=== PATIENT | female | born 1970 | race Caucasian/White ===

== ENCOUNTER 2018-10-15 17:57 | Emergency (ER) | payer BC ==
[2018-10-15] MEDS ORDERED: Acetaminophen/Codeine 300-30 MG Tab PO ONE (18:51)
[2018-10-15] MEDS ORDERED: Diphtheria,Pertussis(Acell),Tetanus Vaccine 0.5 ML SDV IM ONE (18:53)
--- NOTE | 2018-10-15 18:55 | EDM.PDOC ---
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 Pt fell onto her right hand when her right ring finger hyper extended. Pt reduced her right ring finger immediately but noticed swelling of her right ring finger with FROM of that finger. Pt noticed some discomfort at her right wrist as well, has FROM however. Pt noticed an abrasion at her right lower leg. No active bleed. TD not UTD. No other acute medical issues. BP 104/ 67 Pulse 55 Pulse ox 100% on RA RR 16. Temp 36.8 Onset Date: 10/15/18 Onset Time: 06:00 Duration: Hour(s): Location: Reports: Upper Extremity, Right, Lower Extremity, Right Quality: Reports: Dull Severity: Mild Improves with: Reports: Rest Worsens with: Reports: Movement Context: Reports: Trauma Associated Symptoms: Reports: No Other Symptoms fnger Pain Score (Numeric/FACES): 8 - Related Data Allergies Allergy/AdvReac Type Severity Reaction Status Date / Time No Known Allergies Allergy Verified 10/15/18 18:07 Home Meds: Home Meds Acarbose 25 mg PO DAILY 10/15/18 [History] Acetaminophen with Codeine [Tylenol with Codeine #3 Tablet] 1 each PO Q8HR PRN # 6 tablet 10/15/18 [Rx] Calcium Carbonate/Vitamin D3 [Calcium 600 + Vit D Tablet] 1 tab PO DAILY [History] Cholecalciferol (Vitamin D3) [Vitamin D] 5,000 unit PO DAILY 10/15/18 [History] DULoxetine HCl [Duloxetine HCl] 60 mg PO DAILY 10/15/18 [History] Ferrous Gluconate 324 mg PO DAILY 10/15/18 [History] Levothyroxine 150 mcg PO DAILY 10/15/18 [History] Multivitamin [Multivitamins] 1 each PO BID 10/15/18 [History] buPROPion HCl [Wellbutrin Xl] 300 mg PO DAILY 10/15/18 [History] Social & Family History - Tobacco Use Smoking Status *Q: Never Smoker - Recreational Drug Use Recreational Drug Use: No Review of Systems - Review of Systems Review Of Systems: See Below Constitutional: Reports: No Symptoms Eyes: Reports: No Symptoms Ears: Reports: No Symptoms Nose: Reports: No Symptoms Mouth/Throat: Reports: No Symptoms Respiratory: Reports: No Symptoms Cardiovascular: Reports: No Symptoms GI/Abdominal: Reports: No Symptoms Genitourinary: Reports: No Symptoms Musculoskeletal: Reports: Hand Pain Skin: Reports: Wound (right lower leg) Neurological: Reports: No Symptoms Psychiatric: Reports: No Symptoms ED EXAM, GENERAL - Physical Exam Exam: See Below Exam Limited By: No Limitations General Appearance: Alert, WD/WN, Mild Distress Eye Exam: Bilateral Eye: Normal Inspection Ears: Normal External Exam, Normal Canal Ear Exam: Bilateral Ear: Auricle Normal Nose: Normal Inspection Throat/Mouth: Normal Inspection, Normal Lips, Normal Voice, No Airway Compromise Head: Atraumatic, Normocephalic Neck: Normal Inspection, Supple, Non-Tender, Full Range of Motion Respiratory/Chest: No Respiratory Distress, Lungs Clear, Normal Breath Sounds, Chest Non-Tender Cardiovascular: Normal Peripheral Pulses, Regular Rate, Rhythm, No Edema, No Murmur, No Rub Peripheral Pulses: 2+: Carotid (R) GI/Abdominal: Normal Bowel Sounds, Soft, Non-Tender, No Organomegaly, No Mass, Pelvis Stable (Female) Exam: Deferred Rectal (Female) Exam: Deferred Back Exam: Normal Inspection, Full Range of Motion Extremities: Normal Range of Motion, Non-Tender, No Pedal Edema, Normal Capillary Refill, Other (abrasioj R lower leg) Neurological: Alert, Oriented, CN II-XII Intact, Normal Cognition, Normal Gait Psychiatric: Normal Affect, Normal Mood Skin Exam: Warm, Dry, Intact, Normal Color, No Rash Lymphatic: No Adenopathy Course - Vital Signs Text/Narrative:: 47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 Pt fell onto her right hand when her right ring finger hyper extended. Pt reduced her right ring finger immediately but noticed swelling of her right ring finger with FROM of that finger. Pt noticed some discomfort at her right wrist as well, has FROM however. Pt noticed an abrasion at her right lower leg. No active bleed. TD not UTD. No other acute medical issues. BP 104/ 67 Pulse 55 Pulse ox 100% on RA RR 16. Temp 36.8 PE: WNWD W F with right ring finger discomfort and an abrasion Right lower leg , S/P Gastric byp[ass surgery Imaging: Right hand, fingers and wrist: NAD, official report is pending Impression: Right ring finger sprain, Abrasion right lower leg Tx: Wound care, TD, Tylenol with codeine Reexam: Improved Plan: D/C with instructions Last Recorded V/S: Last Vital Signs Temp 36.7 C 10/15/18 18:00 Pulse 55 L 10/15/18 18:00 Resp 16 10/15/18 18:00 BP 104/67 10/15/18 18:00 Pulse Ox 100 10/15/18 18:00 - Orders/Labs/Meds Orders: Active Orders 24 hr Category Date Time Status Vaccines to be Administered [RC] PER UNIT ROUTINE Care 10/15/18 18:53 Active Wrist Comp Min 3V Rt [CR] Stat Exams 10/15/18 18:23 Taken Meds: Medications Discontinued Medications Generic Name Dose Route Start Last Admin Trade Name Arie PRN Reason Stop Dose Admin Acetaminophen/Codeine Phosphate 1 tab 10/15/18 18:51 10/15/18 19:08 Tylenol With Codeine No.3 300mg/30mg PO 10/15/18 18:52 1 tab ONETIME ONE Administration Diphtheria/Tetanus/Acell Pertussis 0.5 ml 10/15/18 18:53 10/15/18 19:07 Adacel IM 10/15/18 18:54 0.5 ml .ONCE ONE Administration Departure - Departure Time of Disposition: 19:15 Disposition: Home, Self-Care 01 Condition: Good Clinical Impression: Abrasion Sprain of finger of right hand Qualifiers: Encounter type: initial encounter Finger: ring finger Sprain of finger site: interphalangeal joint Qualified Code(s): S63.634A - Sprain of interphalangeal joint of right ring finger, initial encounter - Discharge Information Prescriptions: Acetaminophen with Codeine [Tylenol with Codeine #3 Tablet] 1 each PO Q8HR PRN # 6 tablet PRN Reason: severe pain Referrals: Keyonna Swanson NP [Primary Care Provider] - Forms: ED Department Discharge Additional Instructions: Please take Tylenol with codeine for severe pain, please apply Neosporin ointment to wound right lower leg twice daily for 5 days, elevate right ring finger, apply ice, Tylenol for mod pain. Please f/u with your PMD, come back if your symptoms get worse acutely - My Orders Last 24 Hours: My Active Orders 10/15/18 18:23 Wrist Comp Min 3V Rt [CR] Stat 10/15/18 18:53 Vaccines to be Administered [RC] PER UNIT ROUTINE - Assessment/Plan Last 24 Hours: My Active Orders 10/15/18 18:23 Wrist Comp Min 3V Rt [CR] Stat 10/15/18 18:53 Vaccines to be Administered [RC] PER UNIT ROUTINE
--- NOTE | 2018-10-16 11:51 | CR ---
INDICATION: Fall, swelling and pain. RIGHT WRIST: Three views of the right wrist were obtained 10/15/18 - no comparisons. A fracture, dislocation, or other significant bone or joint abnormality was not identified. If occult bony abnormality is suspected clinically - if symptoms persist - re- examination in 10-14 days may be helpful. MTDD
== END 2018-10-15 19:25 | disposition home or self-care (01) ==
LOC: FB.ED 17:57
DX: S63.634A Sprain of interphalangeal joint of right ring finger, initial encounter (principal); S80.811A Abrasion, right lower leg, initial encounter; Z23 Encounter for immunization; Z79.899 Other long term (current) drug therapy; W19.XXXA Unspecified fall, initial encounter; Y92.009 Unspecified place in unspecified non-institutional (private) residence as the place of occurrence of the external cause
CPT/HCPCS: 73110; 90471; 90715; 99283; A9270